=== PATIENT | male | born 1965 | race Two or more races ===

== ENCOUNTER 2017-06-06 15:23 | Observation (INO) | payer MEDICAID ==
[~2017-06-06] VITALS: Ht 165.1 cm; Wt 52.2 kg
[2017-06-06] MEDS ORDERED: Vancomycin 1 GM in NS 275 ML IV ONE (15:45)
[2017-06-06 15:50] VITALS: BP 130/75
[2017-06-06] MEDS ORDERED: Morphine Sulfate 4mg/ml Inj IVP ONE (16:00)
[2017-06-06 16:13] LABS: MEAN CORPUSCULAR HEMOGLOBIN 28.7 PG (27.0-31.0); MEAN CORPUSCULAR HGB CONC 32.7 G/DL (32.0-36.0); MEAN CORPUSCULAR VOLUME 88 FL (80-99); MEAN PLATELET VOLUME 5.7 FL (6.5-10.1); PLATELET COUNT 287 K/UL (150-450); RED BLOOD COUNT 4.89 M/UL (4.70-6.10); RED CELL DISTRIBUTION WIDTH 10.9 % (11.6-14.8)
[2017-06-06] MEDS ORDERED: Unasyn 3gm Inj ONE (16:20)
[2017-06-06] MEDS: Ampicillin/Sulbactam Sod 3 GM in NS 110 ML IV SCH ×2 (16:26→21:45)
[2017-06-06 16:30] LABS: TROPONIN I < 0.30 ng/mL (<=0.30)
[2017-06-06 16:33] LABS: ALANINE AMINOTRANSFERASE 8 U/L (3-41); ANION GAP 17 (5-15); ASPARTATE AMINO TRANSFERASE 7 U/L (5-40); CARBON DIOXIDE 25 mEQ/L (20-30); CHLORIDE 84 mEQ/L (98-107); CREATININE 0.6 mg/dL (0.7-1.2); GLOMERULAR FILTRATION RATE > 60 mL/min (>60); HEMOLYSIS 0; POTASSIUM 3.9 mEQ/L (3.4-4.9); SODIUM 126 mEQ/L (135-145); TOTAL PROTEIN 7.2 g/dL (6.6-8.7); WHITE BLOOD COUNT 22.1 K/UL (4.8-10.8)
[2017-06-06 16:34] LABS: REFLEX LACTIC ACID YES OR NO YES
[2017-06-06 16:39] LABS: APPEARANCE,URINE CLEAR; KETONES,URINE 4+ (NEGATIVE); LEUKOCYTE ESTERASE ,URINE NEGATIVE (NEGATIVE); NITRITE,URINE NEGATIVE (NEGATIVE); PH,URINE 6 (4.5-8.0); PROTEIN,URINE 2+ (NEGATIVE); UROBILINOGEN,URINE 1 MG/DL (0.0-1.0)
[2017-06-06 16:44] LABS: CKMB < 1.5 ng/mL (< 6.7)
[2017-06-06 16:45] LABS: WBC,URINE 0-2 /HPF (0 - 0)
[2017-06-06 16:51] LABS: PROTHROMBIN TIME 10.2 SEC (9.30-11.50)
[2017-06-06 17:06] LABS: BAND NEUTROPHILS % (MANUAL) 1 % (0-8); BASOPHILS % (MANUAL) 0 % (0-2); EOSINOPHILS % (MANUAL) 0 % (0-3); LYMPHOCYTES % (MANUAL) 5 % (20-45); NEUTROPHILS % (MANUAL) 91 % (45-75); PLATELET ESTIMATE ADEQUATE; TOTAL CELLS COUNTED 100
[2017-06-06 17:07] LABS: PLATELET MORPHOLOGY NORMAL
[2017-06-06 17:11] VITALS: BP 152/86
[2017-06-06] MEDS ORDERED: NKM (17:20)
[2017-06-06] MEDS ORDERED: Vancomycin 1gm inj IVPB ONE (17:30)
--- NOTE | 2017-06-06 17:38 | Emergency Room Report ---
History of Present Illness General Chief Complaint: Skin Rash/Abscess Source: Patient Present Illness HPI Patient's 52-year-old male who presented after increased of back swelling as well as fever . The patient noted be vhd-bxodohe-vfnragadi diabetic. He had had noted to have blood sugar then 200. Patient had the swelling for approximately 3 weeks. He had attempted jagdish this himself. The patient denied prior abscesses. He had not been taking medications for diabetes he states is diet controlled. Allergies: Coded Allergies: No Known Allergies (Unverified , 06/06/17) Patient History Past Medical History: see triage record Reviewed Nursing Documentation: PMH: Agreed, PSxH: Agreed Nursing Documentation-PMH Past Medical History: No History, Except For Hx Diabetes: Yes Review of Systems All Other Systems: negative except mentioned in HPI Physical Exam Vital Signs Date Time Temp Pulse Resp B/P (MAP) Pulse Ox O2 Delivery O2 Flow Rate FiO2 06/06/17 15:38 101.7 108 18 130/72 98 Room Air Sp02 EP Interpretation: reviewed, normal General Appearance: normal inspection, alert, GCS 15, moderate distress Head: atraumatic ENT: normal ENT inspection, hearing grossly normal, normal voice Neck: normal inspection, full range of motion, supple, no bony tend Respiratory: normal inspection, lungs clear, normal breath sounds, no respiratory distress, no retraction, no wheezing Cardiovascular #1: regular rate, rhythm, no edema Gastrointestinal: normal inspection, normal bowel sounds, non tender, soft, no guarding, no hernia Genitourinary: no CVA tenderness Musculoskeletal: normal inspection, back normal, normal range of motion Neurologic: normal inspection, alert, oriented x3, responsive, mcat instructor III-XII nml as tested, speech normal Psychiatric: normal inspection, judgement/insight normal, mood/affect normal Skin: other - large fluctant area to right side of back about 10 cm Procedures Incision and Drainage Incision and Drainage : Consent: Verbal Site: back Blade Size: 11 I & D Procedure: sterile drapes applied, sterile dressing applied Wound Location: back Wound's Depth, Shape: linear Wound Length (cm): 2 Wound Explored: clean Anesthesia: 1% Lidocaine Volume Anesthetic (ccs): 5 Patient Tolerated: Well Complications: None Medical Decision Making Diagnostic Impression: Primary Impression: Sepsis Additional Impression: Abscess ER Course Patient presented for abscess. Patient presented for skin rash. Differential diagnosis included was not limited to abscess, cellulitis, folliculitis, necrotizing fascitis. Patient was noted to be febrile. He was started on IV fluids as well as IV antibiotics. The patient's initial white blood count 22, 000. Patient was noted to have a large abscess to his back. This was incised and drained large amount of purulent material drained. Dr. Hernandez was contacted for O physician. The patient subsequently discussed with Dr René Nicole for inpatient management after O was unable to arrange timely transfer. Labs Test 06/06/17 15:50 06/06/17 16:14 06/06/17 16:59 White Blood Count 22.1 K/UL (4.8-10.8) Red Blood Count 4.89 M/UL (4.70-6.10) Hemoglobin 14.1 G/DL (14.2-18.0) Hematocrit 43.0 % (42.0-52.0) Mean Corpuscular Volume 88 FL (80-99) Mean Corpuscular Hemoglobin 28.7 PG (27.0-31.0) Mean Corpuscular Hemoglobin Concent 32.7 G/DL (32.0-36.0) Red Cell Distribution Width 10.9 % (11.6-14.8) Platelet Count 287 K/UL (150-450) Mean Platelet Volume 5.7 FL (6.5-10.1) Neutrophils (%) (Auto) % (45.0-75.0) Lymphocytes (%) (Auto) % (20.0-45.0) Monocytes (%) (Auto) % (1.0-10.0) Eosinophils (%) (Auto) % (0.0-3.0) Basophils (%) (Auto) % (0.0-2.0) Differential Total Cells Counted 100 Neutrophils % (Manual) 91 % (45-75) Lymphocytes % (Manual) 5 % (20-45) Monocytes % (Manual) 3 % (1-10) Eosinophils % (Manual) 0 % (0-3) Basophils % (Manual) 0 % (0-2) Band Neutrophils 1 % (0-8) Platelet Estimate Adequate Platelet Morphology Normal Red Blood Cell Morphology Normal Prothrombin Time 10.2 SEC (9.30-11.50) Prothromb Time International Ratio 1.0 (0.9-1.1) Activated Partial Thromboplast Time 28 SEC (23-33) Sodium Level 126 mEQ/L (135-145) Potassium Level 3.9 mEQ/L (3.4-4.9) Chloride Level 84 mEQ/L (98-107) Carbon Dioxide Level 25 mEQ/L (20-30) Anion Gap 17 (5-15) Blood Urea Nitrogen 11 mg/dL (7-23) Creatinine 0.6 mg/dL (0.7-1.2) Estimat Glomerular Filtration Rate > 60 mL/min (>60) Glucose Level 289 mg/dL (74-106) Calcium Level 9.0 mg/dL (8.6-10.2) Total Bilirubin 0.7 mg/dL (0.0-1.2) Aspartate Amino Transf (AST/SGOT) 7 U/L (5-40) Alanine Aminotransferase (ALT/SGPT) 8 U/L (3-41) Alkaline Phosphatase 106 U/L (40-129) Total Creatine Kinase 41 U/L (38-174) Creatine Kinase MB < 1.5 ng/mL (< 6.7) Creatine Kinase MB Relative Index Troponin I < 0.30 ng/mL (<=0.30) Total Protein 7.2 g/dL (6.6-8.7) Albumin 3.7 g/dL (3.5-5.2) Globulin 3.5 g/dL Albumin/Globulin Ratio 1.0 (1.0-2.7) Urine Color Pale yellow Urine Appearance Clear Urine pH 6 (4.5-8.0) Urine Specific [place] 1.010 (1.005-1.035) Urine Protein 2+ (NEGATIVE) Urine Glucose (UA) 4+ (NEGATIVE) Urine Ketones 4+ (NEGATIVE) Urine Occult Blood 2+ (NEGATIVE) Urine Nitrite Negative (NEGATIVE) Urine Bilirubin Negative (NEGATIVE) Urine Urobilinogen 1 MG/DL (0.0-1.0) Urine Leukocyte Esterase Negative (NEGATIVE) Urine RBC 2-4 /HPF (0 - 0) Urine WBC 0-2 /HPF (0 - 0) Urine Squamous Epithelial Cells None /LPF (NONE/OCC) Urine Bacteria None /HPF (NONE) Lactic Acid Level 1.60 mmol/L (0.66-2.22) EKG Diagnostic Results Rate: tachycardiac - 105 Rhythm: NSR ST Segments: no acute changes ASA given to the pt in ED: No Rhythm Strip Diag. Results EP Interpretation: yes Rhythm: NSR - 103, no PVC's, no ectopy Last Vital Signs Date Time Temp Pulse Resp B/P (MAP) Pulse Ox O2 Delivery O2 Flow Rate FiO2 06/06/17 17:11 97 20 152/86 100 Room Air 06/06/17 15:50 99.4 Status: unchanged Disposition: ADMITTED INPATIENT Condition: Serious Referrals: [facility],REFERRING (PCP) Garret Blanco Jun 06, 2017 17:38
[2017-06-06 19:17] VITALS: BP 121/73
[2017-06-06] MEDS ORDERED: Acetaminophen 500mg (ES) tab ORAL ONE (19:30)
[2017-06-06 21:04] VITALS: BP 112/79
[2017-06-06 21:57] VITALS: BP 117/73
[2017-06-07 00:25] VITALS: BP 111/70
[2017-06-07] MEDS ORDERED: Vancomycin 750mg/NS 250ml IVPB SCH (06:00)
--- NOTE | 2017-06-07 09:40 | Diagnostic Imaging Report ---
Indication: SOB Technique: One view of the chest Comparison: none Findings: Lungs and pleural spaces are clear. Heart size is normal Impression: No acute process
--- NOTE | 2017-06-08 02:15 | History and Physical Report ---
DATE OF ADMISSION: 06/06/2017 INTERNAL MEDICINE EVALUATION: HISTORY OF PRESENT ILLNESS: This is a 52-year-old male who presented with an abscess on his back. He is a noninsulin-dependent diabetic. Blood sugar was 200. He has noted this problem for the last several weeks. He underwent I and D at bedside in the emergency room. PAST MEDICAL HISTORY: Diabetes mellitus only. ALLERGIES: None. PHYSICAL EXAMINATION: Vital Signs: Per transfer record, blood pressure 130/70, heart rate 104, respirations 18, T-max 101.7, O2 saturation 98% on room air. Examination per ER physician normal only except for right back abscess. IMPRESSION: Right back abscess with leukocytosis and hyperglycemia. DISCUSSION: The patient belongs to [facility]. I have been contacted by the insurance to see if patient is safe for discharge. I have discussed the care with Dr. Blanco at the [place] [facility]. The patient had undergone an incision and abscess of the abscess, however it appears to be stable for transfer to [facility]. I will notify the on-call assistant case manager to arrange transfer. The patient is medically stable. René Nicole M.D. DR: ROSA JOB#: [id number] MTDD
--- NOTE | 2017-06-09 19:38 | Cardiology Report ---
APPROVED REPORT EKG Measurement Heart [id number] Sinus tachycardia Otherwise normal ECG
--- NOTE | 2017-08-29 17:00 | Discharge Summary ---
Discharge Summary Hospital Course Date of Admission Jun 06, 2017 at 20:15 Date of Discharge Jun 07, 2017 at 02:02 Admitting Diagnosis sepsis, skin abscess HPI Max Webb is a 52 year old male who was admitted on Jun 06, 2017 at 20:15 for Sepsis,Skin Abcess Hospital Course [id number] Discharge Discharge Disposition Patient was discharged to [facility] Discharge Diagnoses: Annette Fisher NP Aug 29, 2017 17:00
--- NOTE | 2017-08-29 18:45 | Discharge Summary 2 SIG ---
DATE OF ADMISSION: 06/06/2017 DATE OF DISCHARGE: 06/07/2017 BRIEF HOSPITAL COURSE: The patient is a 52-year-old male, who presented with an abscess on his back. He is ufl-esweizr-eddvvfuid diabetic and blood sugar was in the 200. He noted a problem for the last several weeks. Evaluation at ED was done. WBC was 22.1. There was a large abscess on the back and I and D was done. The patient was stable for transfer and was eventually transferred to contracted facility. FINAL DIAGNOSES: Right back abscess with leukocytosis and hyperglycemia. DISCHARGE DISPOSITION: [place] [facility] [place]é [place] M.D. I have been assigned to dictate discharge summary on this account and I was not involved in the patient's management. Annette Fisher N.P. DR: MIRANDA JOB#: [id number] CC:
== END 2017-06-07 02:02 | disposition short-term general hospital (02) ==
LOC: EMR 16:25 → 2E 20:15 → INTOOBSV 20:15 → EDBEDREQ 20:19 → 2E 21:48
DX: L02.212 Cutaneous abscess of back [any part, except buttock and flank] (principal); D72.829 Elevated white blood cell count, unspecified; R50.9 Fever, unspecified; R00.0 Tachycardia, unspecified; E11.65 Type 2 diabetes mellitus with hyperglycemia
CPT/HCPCS: 10060; 36415; 71010; 80053; 81003; 82550; 82553; 83605; 84484; 85007; 85025; 85610; 85730; 87040; 87081; 93005; 99285; G0378; J0295; J2270; J3370; J7050